=== PATIENT | female | born 1985 | race Caucasian/White ===

== ENCOUNTER 2020-09-29 09:55 | Inpatient (IN) | payer SELFPAY ==
[~2020-09-29] VITALS: Ht 154.9 cm; Wt 61.2 kg
[2020-09-29 10:10] VITALS: Ht 154.9 cm; Wt 61.2 kg
[2020-09-29 10:49] LABS: BASOPHIL % 0.1 % (0.2-1.3); PLATELET COUNT 270 x10^3mcL (179-408); RED CELL DISTRIBUTION WIDTH 12.4 % (12.3-17.7)
[2020-09-29 11:00] LABS: CARBON DIOXIDE 15.6 mmol/L (21-32); CHLORIDE SERUM 99 mmol/L (98-107); CREATININE SERUM 1.2 mg/dL (0.6-1.0); GFR1 55 mL/min; GLUCOSE SERUM 215 mg/dL (74-106); POTASSIUM SERUM 3.1 mmol/L (3.5-5.1); SODIUM SERUM 138 mmol/L (136-145)
[2020-09-29 11:04] LABS: ALBUMIN 4.5 g/dL (3.4-5.0); ALKALINE PHOSPHATASE 50 U/L (46-116); ALT/SGPT 64 U/L (14-59); AST/SGOT 34 U/L (15-37); BILIRUBIN TOTAL 0.87 mg/dL (0.20-1.00); CHOLESTEROL 153 mg/dL (<200); TOTAL PROTEIN, SERUM 7.7 g/dL (6.4-8.2)
[2020-09-29 12:50] LABS: rbc morphology (normal/abnorm) NORMAL (NORMAL)
[2020-09-29 13:49] LABS: AMPHETAMINE QUAL UR POSITIVE (See below)
[2020-09-30 03:50] VITALS: BP 114/83
[2020-09-30 09:11] VITALS: BP 95/62
[2020-09-30 10:30] LABS: BASOPHIL % 0.6 % (0.2-1.3); PLATELET COUNT 223 x10^3mcL (179-408); RED CELL DISTRIBUTION WIDTH 12.2 % (12.3-17.7)
[2020-09-30 10:33] LABS: CALCIUM 8.2 mg/dL (8.5-10.1); CARBON DIOXIDE 22.1 mmol/L (21-32); CHLORIDE SERUM 102 mmol/L (98-107); CREATININE SERUM 0.6 mg/dL (0.6-1.0); GFR1 > 60 mL/min; GLUCOSE SERUM 99 mg/dL (74-106); PHOSPHOROUS 3.3 mg/dL (2.5-4.9); SODIUM SERUM 135 mmol/L (136-145)
[2020-09-30 10:38] LABS: POTASSIUM SERUM 2.8 mmol/L (3.5-5.1)
[2020-09-30 12:09] VITALS: BP 104/69
[2020-09-30 13:42] LABS: rbc morphology (normal/abnorm) NORMAL (NORMAL)
[2020-09-30 16:21] VITALS: BP 113/68
[2020-09-30 19:03] LABS: CALCIUM 8.6 mg/dL (8.5-10.1); CARBON DIOXIDE 23.3 mmol/L (21-32); CHLORIDE SERUM 105 mmol/L (98-107); CREATININE SERUM 0.6 mg/dL (0.6-1.0); GFR1 > 60 mL/min; GLUCOSE SERUM 110 mg/dL (74-106); SODIUM SERUM 139 mmol/L (136-145)
[2020-09-30 19:11] LABS: POTASSIUM SERUM 2.8 mmol/L (3.5-5.1)
[2020-09-30 21:42] VITALS: BP 118/63
[2020-10-01 06:13] VITALS: BP 120/72
[2020-10-01 09:06] VITALS: BP 111/75
[2020-10-01 10:32] LABS: BASOPHIL % 1.5 % (0.2-1.3); PLATELET COUNT 240 x10^3mcL (179-408)
[2020-10-01 11:08] LABS: CALCIUM 8.8 mg/dL (8.5-10.1); CARBON DIOXIDE 21.6 mmol/L (21-32); CHLORIDE SERUM 101 mmol/L (98-107); CREATININE SERUM 0.6 mg/dL (0.6-1.0); GFR1 > 60 mL/min; GLUCOSE SERUM 89 mg/dL (74-106); PHOSPHOROUS 2.9 mg/dL (2.5-4.9); POTASSIUM SERUM 3.1 mmol/L (3.5-5.1); SODIUM SERUM 136 mmol/L (136-145)
[2020-10-01 12:43] VITALS: BP 118/73
[2020-10-01 13:47] LABS: rbc morphology (normal/abnorm) NORMAL (NORMAL)
[2020-10-01 16:43] VITALS: BP 109/72
[2020-10-01 20:25] VITALS: BP 115/67
[2020-10-02 06:06] VITALS: BP 115/73
[2020-10-02 09:41] VITALS: BP 108/75
[2020-10-02] MEDS ORDERED: XARELTO15 M1 PO (11:48)
[2020-10-02] MEDS ORDERED: KEP500 PO (11:49)
[2020-10-02] MEDS ORDERED: XARELTO20 M1 PO (11:49)
[2020-10-02 12:35] VITALS: BP 108/75
[2020-10-02 13:41] VITALS: BP 116/72
== END 2020-10-02 15:54 | disposition home or self-care (01) | DRG 100 ==
LOC: ED 09:55 → DU 21:36 → IC 09-30 02:44 → DU 09-30 03:29
PROVIDERS: Emergency Medicine; ADMIT Internal Medicine; ATTEND Internal Medicine
DX: R56.9 Unspecified convulsions (principal); N17.0 Acute kidney failure with tubular necrosis; R65.10 Systemic inflammatory response syndrome (SIRS) of non-infectious origin without acute organ dysfunction; I67.6 Nonpyogenic thrombosis of intracranial venous system; Z20.822 Contact with and (suspected) exposure to COVID-19; F15.10 Other stimulant abuse, uncomplicated; D72.829 Elevated white blood cell count, unspecified; E87.6 Hypokalemia
CPT/HCPCS: 85378; 97116-GP; G0378; G0480; J0696; J1644; J1953; J3480; J7030; J7060; Q9967; U0003

== ENCOUNTER 2020-10-05 18:21 | Emergency (ER) | payer SELFPAY ==
[~2020-10-05] VITALS: Ht 154.9 cm; Wt 63.5 kg
[~2020-10-05 18:21] MED LIST: KEP500 PO; XARELTO15 M1 PO; XARELTO20 M1 PO
[2020-10-05 18:58] VITALS: BP 127/101; Ht 154.9 cm; Wt 63.5 kg
== END 2020-10-05 19:37 | disposition home or self-care (01) ==
LOC: ED 18:21
DX: R56.9 Unspecified convulsions (principal); F15.10 Other stimulant abuse, uncomplicated; Z76.0 Encounter for issue of repeat prescription; Z02.79 Encounter for issue of other medical certificate